=== PATIENT | male | born 1965 | race Caucasian/White ===

== ENCOUNTER 2022-06-02 11:12 | Emergency (ER) | payer BC, SELFPAY ==
[2022-06-02] VITALS (44 sets, daily range): BP systolic 103–155; BP diastolic 59–80; PULSE 56–77; RESP 10–18; TEMP 37.2; O2SAT 93–100
--- NOTE | ~2022-06-02 | CT_ITS ---
EXAMINATION: CTA chest PE protocol DATE: 06/02/2022 12:25 INDICATION: Chest pain. TECHNIQUE: Computed tomography angiography (CTA) of the chest was performed with 100 mL Omnipaque-350 intravenous contrast timed to evaluate the pulmonary arteries. Coronal maximum intensity projection 3D-reconstructions were created by the technologist. Automated exposure control and iterative reconst ruction technique were employed. The dose-length product was 847.25 mGy-cm. COMPARISON: None. FINDINGS: There is mild emphysema. No pleural effusion. Cardiomegaly is noted. There are coronary art marie calcifications. There are changes of coronary artery bypass grafting. No pericardial effusion. Th ere is no pulmonary embolus. There is an old healed right rib fracture. There is mild thoracic spondy losis. IMPRESSION: 1. No pulmonary embolus. 2. Mild emphysema. 3. Cardiomegaly. Reviewed, dictated and finalized at location A. TS AGENT
--- NOTE | ~2022-06-02 | XR_ITS ---
EXAMINATION: XR chest 1V portable INDICATION: Chest pain TECHNIQUE: Portable AP chest at 1140 hours COMPARISON: None available FINDINGS: Cardiomegaly is noted. There is mild diffuse interstitial pattern. No pleural effusion or p neumothorax. The right costophrenic angle is excluded from the examination. Median sternotomy wires a re consistent with prior cardiac surgery. IMPRESSION: 1. Cardiomegaly with mild pulmonary edema. Reviewed, dictated and finalized at location B. MUNITION ASSEMBLY I LABORER
--- NOTE | 2022-06-02 11:20 | ECG_ITS ---
Measurements Intervals [place] Rate: 72 P: 32 MI: 197 QRS: 64 QRSD: 100 T: 82 QT: 393 QTc: 430 Interpretive Statements SINUS RHYTHM INCOMPLETE RIGHT BUNDLE BRANCH BLOCK BORDERLINE ST-T WAVE ABNORMALITY- HIGH LATERAL LEADS BASELINE ARTIFACT- I, II, III, AVR, AVL, AVF, V1-V6 BORDERLINE ECG NO PREVIOUS ECG AVAILABLE FOR COMPARISON Electronically Signed On 06-02-2022 11:56:30 TICK ERADICATOR by Tyrone Kong D.O.
--- NOTE | 2022-06-02 11:33 | ED.CHESTPAIN ---
HPI - Chest Pain General Chief Complaint: Chest Pain Stated Complaint: left chest pain Time Seen by Provider: 06/02/22 11:17 Source: RN notes reviewed History of Present Illness HPI narrative: Patient presents emergency room from home via EMS for chest pain. Patient states that pain began approximately 5 AM this morning. The pain is located to the left side of the chest and does not radiate. States it feels like a pressure or a gas bubble . He states he tried taking nitroglycerin at home as well as nitro by EMS with no change in the pain states that nothing makes it better or worse he denies any shortness of breath abdominal pain nausea vomiting or any other symptoms. 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 Related Data Allergies Allergy/AdvReac Type Severity Reaction Status Date / Time No Known Allergies Allergy Verified 06/02/22 12:21 Review of Systems Review of Systems: Gen.: Denies fevers or chills ENT: Denies congestion Respiratory: Denies shortness of breath or cough CV: See HPI GI: Denies abdominal pain nausea, emesis or diarrhea Musculoskeletal: Denies back pain or muscle pain Neuro: Denies numbness, tingling, weakness or focal weakness Skin: Denies rash Except as documented, all other systems reviewed and negative [facility] Past Medical History Medical History (Updated 06/02/22 @ 13:14 by Good Pressley DO) Coronary artery disease Hypercholesterolemia Hypertension Social History Social History (Updated 06/02/22 @ 11:36 by Good Pressley DO) Smoking status: Current every day smoker Exam Narrative: APPEARANCE: No acute distress, nontoxic, resting in bed EYES: EOMI HEENT: Normocephalic, atraumatic, OMM RESPIRATORY: No respiratory distress Clear to auscultation bilaterally with no rhonchi wheezing or rales. CARDIOVASCULAR: Regular rate and rhythm without murmurs rubs or gallops. ABDOMINAL: Soft, nontender, nondistended, no rebound or guarding MUSCULOSKELETAl: Moves all extremities. No clubbing, cyanosis or edema. NEURO: Awake and alert. Following commands, speech normal, no focal deficits SKIN:: Warm, dry. No rashes lesions or abrasions PSYCHIATRIC: Normal affect/mood, Course Course Emergency Course: Patient notes no change in pain with GI cocktail morphine given Discussed with JADIEL Scott for Dr. Baptiste presentation work-up agrees with consult we discussed anticoagulation and will hold anticoagulation till the patient is evaluated by Dr. Baptiste Discussed with JADIEL Cleaning for Dr. Shaw agrees with admission Discussed with patient and family results of workup and diagnosis. Discussed need for admission. Patient and family understand and agree to current treatment plan Vital Signs Vital signs: Vital Signs Temperature 98.9 F 06/02/22 11:20 Pulse Rate 68 06/02/22 11:20 Respiratory Rate 12 06/02/22 11:20 Blood Pressure 121/63 06/02/22 11:20 Pulse Oximetry 100 06/02/22 11:20 Temperature 98.9 F 06/02/22 11:20 Pulse Rate 71 06/02/22 12:02 Respiratory Rate 15 06/02/22 12:02 Blood Pressure 121/63 06/02/22 12:02 Pulse Oximetry 94 06/02/22 12:02 MDM - Chest Pain MDM Narrative Medical decision making narrative: Patient presents with left-sided chest pain since 5 AM this morning has a history of stents and bypass. 2 EKGs obtained in ED showing no changes initial troponin is negative with pain going on since 5 AM. Patient just traveled from [place] yesterday CT of the chest shows no aneurysms or pulmonary embolisms question whether this is musculoskeletal pain versus other I discussed with cardiology and they will evaluate will admit for further cardiac evaluation Lab Data Result diagrams: 06/02/22 11:26 06/02/22 11:26 Labs: Lab Results 06/02/22 06/02/2205/23
[2022-06-02 11:42] LABS: Alanine Aminotransferase 23 U/L (6-50); Albumin Level 3.8 g/dL (3.5-5.1); Alkaline Phosphatase 59 U/L (38-126); Anion Gap 11 mmol/L (8-16); Aspartate Amino Transferase 26 U/L (17-59); Basophils Absolute Auto 0.1 K/mm3 (0.0-0.1); Basophils Percent Auto 0.6 % (0.2-1.2); Bilirubin,Total 0.2 mg/dL (0.2-1.3); Blood Urea Nitrogen 16 mg/dL (9-20); Calcium 8.1 mg/dL (8.4-10.2); Carbon Dioxide 29 mmol/L (22-30); Chloride 103 mmol/L (98-107); Eosinophils Absolute Auto 0.1 K/mm3 (0-0.3); Eosinophils Percent Auto 0.7 % (0-4.4); Estimated Glomerular Filt Rate > 60; Glucose 178 mg/dL (65-110); Hemoglobin 12.5 g/dL (14.0-18.0); Immature Granulocyte Absolute 0.03 K/mm3 (0.00-0.031); Immature Granulocyte Percent A 0.3 % (0-0.5); Lipase 245 U/L (23-300); Lymphocytes Absolute Auto 2.12 K/mm3 (0.9-3.2); Lymphocytes Percent Auto 22.1 % (18.3-44.2); Mean Corpuscular HGB Conc 32.1 g/dl (32-36); Mean Corpuscular Hemoglobin 31.3 pg (26-34); Mean Corpuscular Volume 97.7 fl (80-100); Monocytes Absolute Auto 0.6 K/mm3 (0.1-0.6); Monocytes Percent Auto 6.3 % (2.6-8.5); Neutrophils Absolute Auto 6.7 K/mm3 (1.3-6.7); Platelet Count Result 200 k/mm3 (150-375); Potassium 4.6 mmol/L (3.4-5.0); Red Blood Count 3.99 M/mm3 (4.6-6.20); Red Cell Distribution Width 13.2 % (11.5-14.5); Sodium 143 mmol/L (137-145); White Blood Count 9.6 K/mm3 (4.5-10.0)
[2022-06-02 11:54] LABS: Troponin I < 0.012 ng/mL (0.000-0.034)
[2022-06-02 12:05] LABS: Partial Thromboplastin Time 28.8 SECONDS (22.3-36.8)
[2022-06-02 12:15] LABS: INR 1.1; Prothrombin Time 13.9 Seconds (11.1-14.7)
[2022-06-02] MEDS: MORPHINE SULFATE (*CRX) 4 MG/ML INJ IV PUSH (12:32)
--- NOTE | 2022-06-02 12:36 | ECG_ITS ---
Measurements Intervals [place] Rate: 69 P: 48 TN: 186 QRS: 53 QRSD: 98 T: 87 QT: 407 QTc: 437 Interpretive Statements SINUS RHYTHM INCOMPLETE RIGHT BUNDLE BRANCH BLOCK NONSPECIFIC ST-T WAVE ABNORMALITY- HIGH LATERAL LEADS BASELINE ARTIFACT- I, III, AVR, AVL BORDERLINE ECG COMPARED TO ECG 06/02/2022 11:22:11 Electronically Signed On 06-02-2022 13:25:23 MANAGER WELLNESS by Tyrone Kong D.O.
[2022-06-02 12:44] LABS: NT Pro B Type Natriuretic Pept 99 pg/mL (5-100)
--- NOTE | 2022-06-02 13:21 | PM.IMHP ---
H&P: HPI History of Present Illness Date/Time: 06/02/22 13:21 Chief Complaint: Chest pain Narrative: This is a 57-year-old male patient who tells me that he has a history of having 10 cardiac stents and at least 3 way bypass. The patient was traveling from [place] for a job. The patient stated approximately 5:00 a.m. this morning he developed chest pain. Initially the pain was located on left side of his chest and did not radiate. The patient stated it felt like a gas bubble him the middle of his chest. Tried taking nitroglycerin and was given nitroglycerin by EMS with no change. He was also given a GI cocktail which also had no change in his discomfort. The patient was also given morphine in the emergency room still no change in discomfort. The patient tells me that he also has some anxiety. So he was given Ativan. The patient stated nothing makes it better or worse. 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 EKG was read as sinus rhythm incomplete right bundle-branch block nonspecific the T-wave abnormal T hilar neural leads. His troponin is negative. Cardiology has been consulted. Chest CTA was read as no pulmonary embolus. Mild emphysema. Cardiomegaly. Chest x-ray was read as cardiomegaly with mild pulmonary edema. The patient was given an aspirin, GI cocktail, morphine, Tylenol IV, Ativan Protonix and heparin drip in the emergency room. The patient is being admitted to observation status on the date of service 06/02/2022 Review of Systems Review of Systems: See HPI All systems reviewed & are unremarkable except as noted in HPI and below Constitutional: Constitutional: Reports as per HPI and Reports no additional constitutional complaints Eyes: Eyes: Reports as per HPI and Reports no additional eye complaints ENT: Reports system reviewed and no additional complaints, except as documented and Reports Normal hearing present Cardiovascular: Cardiovascular: Reports no additional cardiovascular complaints Respiratory: Respiratory: Reports no additional respiratory complaints and Reports no additional respiratory complaints Gastrointestinal: Gastrointestinal: Reports as per HPI and Reports no additional gastrointestinal complaints Musculoskeletal: Musculoskeletal: Reports no additional musculoskeletal complaints Integumentary/Breasts: Skin/Breast: Reports system reviewed and no additional complaints, except as docu and Reports as per HPI Neurologic: Reports system reviewed and no additional complaints, except as documented, Reports as per HPI and Reports Normal hearing present Psychiatric: Psychiatric: Reports no additional psychiatric complaints and Reports as per HPI Endocrine: Endocrine: Reports no additional endocrine complaints Hematologic/Lymphatic: Hematologic/Lymphatic: Reports no additional hematologic/lymphatic complaints Allergic/Immunologic: Allergic/Immunologic: Reports no additional allergic/immunologic complaints [facility] Past Medical History Medical History (Updated 06/02/22 @ 13:36 by Hermila Mai NP) 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 He Smokes at least half a pack a cigarettes a day. He occasionally has an alcoholic beverage. He denies any marijuana or illicit drugs. His is the durable power assistant district attorney for healthcare.
--- NOTE | 2022-06-02 14:00 | PM.CNCAR ---
Assessment and Plan Assessment and plan (1) Chest pain: Code(s): R07.9 - Chest pain, unspecified Status: Acute Plan 57-year-old man a apparently known to have significant coronary disease with previous infarction and previous percutaneous and then ultimately with surgical revascularization approximately 2 years ago down in [place]. He has been doing well. He comes in today with about 7 hours of chest pain this time which she says is in quality different than his previous ischemic symptoms. In the face of this his electrocardiograms do not look concerning and the 1st troponin level negative. We do not have any idea on the chart what his home medical regimen consists of. I would recommend admitting him to the hospital for finishing rule out IN/ACS with serial troponin trending. The hospitalists have decided to heparinize him which I think is a good idea. He should also receive aspirin, beta-blockers nitrates and statins. I will follow him up tomorrow to see if his troponins have demonstrated any evidence of acute myocardial injury. Further recommendations will be pending that data. My clinical impression is that the symptoms are likely not to be cardiac Travis Baptiste MD [facility] History of Present Illness History of Present Illness Consult date/time: 06/02/22 14:00 Consult reason: chest pain Reason For Visit: left chest pain Narrative: This is a 57-year-old man I am seeing this afternoon in the emergency room at the crest of the ED staff and the hospitalist because of chest pain. He is unknown to me and unknown to any doctors here at [facility] as he is here from out of town where for work. According to the patient he was in his usual state relatively good health when at about 5:00 a.m. this morning he began to experience chest pain he describes this as a low substernal to epigastric sharp pain that persists in that location since it began this morning. It is not radiating to any other location it is not associated with diaphoresis nausea or shortness of breath. He has not found anything that improves or aggravates the pain. He because of his history of coronary disease he elected to come into the emergency room for evaluation. Since arrival here he has received some analgesics as well as a GI cocktail with no significant effect on the pain. He describes a still is moderate about 5 to 6/10 in intensity. He otherwise appears to be in no distress he apparently is known to have coronary artery disease and is from [facility] where he has been receiving his care. He has a history of previous myocardial infarction and previous percutaneous revascularization on a number of occasions. He says about 2 years ago his chute man evaluated him because he was having chest pain and decided he should undergo bypass surgery he had a he believes at least a 2 or possibly 3 vessel bypass operation. We do not have any records of those details of course here at [facility]. He says that his physicians told him they they believe he had a good result following surgery and he has not had any admissions to the hospital for cardiac problems since his operation. The patient states that his previous ischemic chest pain was a central heavy weight like pressure sensation. He states that the current symptom is different it is lower in the chest and is a sharp sensation rather than a pressure-like pain. Because of this I was summoned to come see him in the emergency room. His laboratory evaluation is negative he does have a normal troponin level done in the face of about 6-7 hours of pain. His he has had about 5 electrocardiograms done since he has been here on none of which demonstrate any acute ischemic injury pattern. Review of Systems Constitutional: Constitutional: Reports no additional constitutional complaints Eyes: Eyes: Reports no additional eye complaints ENT: Reports system reviewed and no additional complaints, exce
[2022-06-02] MEDS: LORazepam INJ (*CRX) 2 MG/ML VIAL 1 MG IV PUSH (14:23)
[2022-06-02] MEDS: PANTOPRAZOLE SODIUM IV 40 MG VIAL IV PUSH (14:24)
[2022-06-02] MEDS: HEPARIN SODIUM 5,000 UNITS/ML VIAL 4000 UNITS IV PUSH (14:26)
[2022-06-02] MEDS: HEPARIN SOD/D5W 100 UNITS/ML 25,000 UNITS/250 ML BAG 10 UNITS IV CONT (14:27)
[2022-06-02 15:39] LABS: Troponin I < 0.012 ng/mL (0.000-0.034)
== END 2022-06-02 17:17 | disposition left against medical advice (07) ==
LOC: ANHED 13:14 → ANHIMU 16:42
PROVIDERS: Emergency Provider Emergency Medicine
DX: R07.9 Chest pain, unspecified (principal); I25.10 Atherosclerotic heart disease of native coronary artery without angina pectoris; E78.00 Pure hypercholesterolemia, unspecified; I10 Essential (primary) hypertension; F41.9 Anxiety disorder, unspecified; Z87.442 Personal history of urinary calculi; Z95.1 Presence of aortocoronary bypass graft; Z95.5 Presence of coronary angioplasty implant and graft; F17.210 Nicotine dependence, cigarettes, uncomplicated; I51.7 Cardiomegaly; J43.9 Emphysema, unspecified; I45.10 Unspecified right bundle-branch block; R94.31 Abnormal electrocardiogram [ECG] [EKG]
CPT/HCPCS: 36415; 71045; 71275; 80053; 83690; 83880; 84484; 85025; 85610; 85730; 93005; 96374; 96375; 99284; A9270; C9113; J0131; J1644; J2060; J2270; Q9967